=== PATIENT | male | born 1960 | race Caucasian/White ===

== ENCOUNTER 2020-04-11 09:31 | Emergency (ER) | payer BC ==
[~2020-04-11] VITALS: Ht 190.5 cm; Wt 87.7 kg
[~2020-04-11 09:31] MED LIST: HYDR-4383 PO; METH4TAB3 PO; NO HOME MEDS
--- NOTE | 2020-04-11 10:07 | NUR ---
PER PATIENT EVERYTHING STARTED WHEN HE PULLED A MUSLCE IN HIS BACK ABOUT 2+ MONTHS AGO USING A PULL SAW HE WENT TO A WALK IN [facility] AFTER THAT HE REPORTS THE PAIN WENT TO HIS LOWER BACK AND HAS HAD N/V AND DIARREA HE HAS NOT HAD HE ENERGY TO MOVE HAD REMAINED ON HIS R SIDE NOW HE WAS A PRESSURE WOUND ON HIS R HIP
[2020-04-11] MEDS ORDERED: normal saline 1000ML IV soln IVB ONE (10:25)
[2020-04-11 10:46] LABS: ALANINE AMINOTRANSFERASE 71 U/L (12-78); ALBUMIN 1.7 G/DL (3.4-5.0); ALBUMIN/GLOBULIN RATIO 0.4 (1.1-1.5); ALKALINE PHOSPHATASE 239 IU/L (46-116); ANION GAP 7 (8-16); ASPARTATE AMINO TRANSFERASE 42 U/L (10-37); BILIRUBIN,TOTAL 1.1 MG/DL (0.1-1.0); BLOOD UREA NITROGEN 16 MG/DL (7-18); BUN/CREATININE RATIO 17.6 (5.4-32.0); CALCIUM 8.5 MG/DL (8.5-10.1); CHLORIDE 95 MMOL/L (99-107); CREATINE KINASE 34 U/L (39-308); CREATININE 0.91 MG/DL (0.60-1.10); GLUCOSE 111 MG/DL (70-104); LIPASE 266 U/L (73-393); POTASSIUM 3.4 MMOL/L (3.5-5.1); SODIUM 131 MMOL/L (135-145); TOTAL CARBON DIOXIDE 28.7 MMOL/L (24-32); TOTAL PROTEIN 6.5 G/DL (6.4-8.2); eGFR 85 ML/MIN
[2020-04-11 10:51] LABS: BASOPHILS % (AUTO) 0.1 % (0-1); EOSINOPHILS % (AUTO) 0 % (0-6); HEMATOCRIT 34.5 % (42.0-52.0); HEMOGLOBIN 11.5 g/dl (14.0-17.9); LYMPHOCYTES # (AUTO) 1.3 X10'3 (1.1-4.8); LYMPHOCYTES % (AUTO) 6.4 % (21-51); MEAN CORPUSCULAR HEMOGLOBIN 30.3 PG (27.0-31.0); MEAN CORPUSCULAR HGB CONC 33.5 g/dL (33.0-36.5); MEAN CORPUSCULAR VOLUME 90.4 FL (78-98); MEAN PLATELET VOLUME 8.2 FL (7.4-10.4); MONOCYTES # (AUTO) 1.5 X10'3 (0-0.9); MONOCYTES % (AUTO) 7.3 % (2-12); NEUTROPHILS # (AUTO) 17.5 X10'3 (1.8-7.7); NEUTROPHILS % (AUTO) 86.2 % (42-75); PLATELET COUNT 309 X10'3 (140-440); RED BLOOD COUNT 3.81 X10'6 (4.70-6.10); RED CELL DISTRIBUTION WIDTH 14.9 % (11.5-14.5); WHITE BLOOD COUNT 20.3 X10'3 (4.5-11.0)
--- NOTE | 2020-04-11 10:58 | NUR ---
Stool sample sent to the lab.
[2020-04-11] MEDS ORDERED: iohexol 300mg/ml 100ml inj. ONE (11:00)
[2020-04-11 11:07] LABS: CLARITY,URINE SLIGHTLY CLOUDY (Clear); COLOR,URINE YELLOW (Yellow); GLUCOSE, URINE NEGATIVE (Neg); KETONES,URINE NEGATIVE (Neg); LEUKOCYTE ESTERASE ,URINE TRACE (Neg); NITRITES, URINE POSITIVE (Neg); OCCULT BLOOD,URINE TRACE-LYSED (Neg); PROTEIN,URINE 30 mg/dl (Neg); UROBILINOGEN,URINE 0.2 E.U/dL (0.2-1.0)
[2020-04-11 11:10] LABS: UA COLLECTION TYPE URINAL
[2020-04-11 11:13] LABS: BACTERIA,URINE 4+ /HPF (Neg); MUCUS STRANDS FEW /LPF (Neg); RBC,URINE 0-2 /HPF (0-2); SQUAMOUS EPITHELIAL CELL,UR FEW /LPF (FEW); WBC,URINE 0-4 /HPF (0-4)
[2020-04-11 11:31] LABS: C DIFF SPECIMEN=DIARRHEA? ACCEPTABLE
[2020-04-11 11:37] LABS: C DIFF ANTIGEN NEGATIVE (NEGATIVE); C DIFFICILE TOXINS A&B NEGATIVE (Neg)
[2020-04-11] MEDS ORDERED: DIPH-186 PO (13:13)
[2020-04-11] MEDS ORDERED: diphenoxylate/atropine tablet (Lomotil) PO ONE (13:15)
[2020-04-11 14:27] VITALS: BP 122/96
== END 2020-04-11 14:46 | disposition home or self-care (01) ==
LOC: ER 09:32
DX: K52.9 Noninfective gastroenteritis and colitis, unspecified (principal); R11.2 Nausea with vomiting, unspecified; K21.9 Gastro-esophageal reflux disease without esophagitis; G89.29 Other chronic pain; Z72.89 Other problems related to lifestyle; Z79.899 Other long term (current) drug therapy
CPT/HCPCS: 36415; 74177; 80053; 81001; 82550; 83690; 85025; 87077; 87088; 87186; 87324; 87449; 96360; 99285; J7030; Q9967

== ENCOUNTER 2020-04-16 08:27 | Emergency (ER) | payer BC ==
[~2020-04-16 08:27] MED LIST changes: +DIPH-186 PO; +calcium chloride 100 MG/1 ML inj IV ONE; +epiNEPHrine 0.1mg/ml 10ml syringe ONE; +sod chloride 0.9% 10ml flush syringe IV ONE
[2020-04-16] MEDS ORDERED: normal saline 1000ML IV soln IV ONE (09:00)
[2020-04-16 09:13] LABS: HEMOGLOBIN 9.6 g/dl (14.0-17.9); NEUTROPHILS # (AUTO) 11.9 X10'3 (1.8-7.7); WHITE BLOOD COUNT 14.7 X10'3 (4.5-11.0)
[2020-04-16 09:15] LABS: BASOPHILS # (AUTO) 0.2 X10'3 (0-0.2); BASOPHILS % (AUTO) 1.1 % (0-1); EOSINOPHILS % (AUTO) 0 % (0-6); HEMATOCRIT 31.6 % (42.0-52.0); LYMPHOCYTES # (AUTO) 2.3 X10'3 (1.1-4.8); LYMPHOCYTES % (AUTO) 15.7 % (21-51); MEAN CORPUSCULAR HEMOGLOBIN 29.6 PG (27.0-31.0); MEAN CORPUSCULAR HGB CONC 30.4 g/dL (33.0-36.5); MEAN CORPUSCULAR VOLUME 97.5 FL (78-98); MEAN PLATELET VOLUME 8.6 FL (7.4-10.4); MONOCYTES # (AUTO) 0.3 X10'3 (0-0.9); MONOCYTES % (AUTO) 2.2 % (2-12); PLATELET COUNT 170 X10'3 (140-440); RED BLOOD COUNT 3.24 X10'6 (4.70-6.10); RED CELL DISTRIBUTION WIDTH 15.5 % (11.5-14.5)
[2020-04-16 09:24] LABS: PARTIAL THROMBOPLASTIN TIME 64 SECONDS (22-32)
[2020-04-16 09:26] LABS: ALANINE AMINOTRANSFERASE 220 U/L (12-78); ALBUMIN 0.9 G/DL (3.4-5.0); ALBUMIN/GLOBULIN RATIO 0.3 (1.1-1.5); ALKALINE PHOSPHATASE 245 IU/L (46-116); ANION GAP 22 (8-16); ASPARTATE AMINO TRANSFERASE 338 U/L (10-37); BILIRUBIN,TOTAL 0.5 MG/DL (0.1-1.0); BLOOD UREA NITROGEN 26 MG/DL (7-18); BUN/CREATININE RATIO 12.7 (5.4-32.0); CALCIUM 11.6 MG/DL (8.5-10.1); CHLORIDE 109 MMOL/L (99-107); CREATININE 2.05 MG/DL (0.60-1.10); SODIUM 149 MMOL/L (135-145); TOTAL CARBON DIOXIDE 18.1 MMOL/L (24-32); eGFR 33 ML/MIN
[2020-04-16 09:34] LABS: MAGNESIUM 2.3 MG/DL (1.5-2.4)
[2020-04-16 09:35] LABS: GLUCOSE 88 MG/DL (70-104); POTASSIUM 5.7 MMOL/L (3.5-5.1)
[2020-04-16 09:38] LABS: NUCLEATED RED BLOOD CELLS 2 /100WBC (0-0); PLATELET ESTIMATE NORMAL; TOTAL CELLS COUNTED 100
[2020-04-16 09:39] LABS: POLYCHROMASIA FEW
[2020-04-16 09:40] LABS: SCHISTOCYTES FEW
--- NOTE | 2020-04-16 10:38 | NUR ---
SEE CODE SUMMARY PAGE
== END 2020-04-16 10:42 | disposition expired ==
LOC: EDBD → ER 08:27 → MERGE 08:27 → ER 10:42
DX: I46.9 Cardiac arrest, cause unspecified (principal); R00.0 Tachycardia, unspecified
CPT/HCPCS: 31500; 36415; 80053; 83605; 83735; 83880; 84145; 84484; 85025; 85610; 85730; 87040; 87077; 87186; 92950; 93005; 99291; J0171; 94760